=== PATIENT | female | born 1965 | race Caucasian/White ===

== ENCOUNTER 2023-05-02 13:04 | Outpatient (CLI) | payer BC, SELFPAY | END 2023-05-02 13:05 | disposition home or self-care (01) | LOC: NFLDREF 05-04 09:13 | PROVIDERS: PCP Family Medicine; Referring Provider Family Medicine; Visit Provider Nurse Practitioner | DX: R30.0 Dysuria (principal); N30.01 Acute cystitis with hematuria | CPT/HCPCS: 87086 ==

== ENCOUNTER 2023-06-09 17:53 | Outpatient (CLI) | payer BC, SELFPAY | END 2023-06-09 17:54 | disposition home or self-care (01) | LOC: NFLDREF 06-26 03:02 | PROVIDERS: PCP Family Medicine; Referring Provider Family Medicine; Visit Provider Registered Nurse | DX: R07.89 Other chest pain (principal); K21.9 Gastro-esophageal reflux disease without esophagitis | CPT/HCPCS: 84484 ==

== ENCOUNTER 2024-09-21 08:32 | Outpatient (CLI) | payer BC, SELFPAY ==
--- NOTE | 2024-09-21 09:00 | CRLHL7_ITS ---
For Patients: As a result of the Century Cures Act, medical imaging exams and procedure reports are released immediately into your electronic medical record. You may view this report before your referring provider. If you have questions, please contact your health care provider. INDICATION: Microscopic hematuria TECHNIQUE: CT abdomen and pelvis with and without contrast. 100 mL Isovue intravenous contrast COMPARISON: None. FINDINGS: Lower chest: Unremarkable. Liver: Normal in size and attenuation. No suspicious masses. Gallbladder and bile ducts: No stones or inflammation. No biliary dilatation. Pancreas: Unremarkable. No mass or inflammation. Spleen: Normal in size. No masses. Adrenal glands: Normal in size. No nodules. Kidneys: Normal in size. No suspicious masses, stones, or hydronephrosis. GI tract: Unremarkable. Normal in caliber. No sign of mass or inflammation. Normal appendix. Vasculature: Abdominal aorta is normal in caliber. Lymph nodes: No lymphadenopathy. Peritoneum/Abdominal Wall: Unremarkable. No sign of mass or infiltration. No free air or significant free fluid. Pelvis: Unremarkable. No pelvic masses. Air in the urinary Bladder which otherwise is unremarkable. Bones: Unremarkable for age. IMPRESSION: 1. Urinary tract appears unremarkable. Air in the urinary bladder. Correlate for recent instrumentation. Please note that all CT scans at this facility use dose modulation, iterative reconstruction, and/or weight-based dosing when appropriate to reduce radiation dose to as low as reasonably achievable. Dictated by Nuria Gagnon MD @ 09/23/2024 9:58:57 AM (Electronically Signed)
[2024-09-21 09:49] LABS: Creatinine* 0.7 mg/dL (0.5-1.5); Estimated Glomerular Filt Rate 98 ml/min
== END 2024-09-21 08:33 | disposition home or self-care (01) ==
LOC: CT 08:33
PROVIDERS: PCP Family Medicine
DX: R31.29 Other microscopic hematuria (principal)
CPT/HCPCS: 36415; 74178; 82565; Q9967

== ENCOUNTER 2025-03-21 21:00 | Emergency (ER) | payer BC, SELFPAY ==
--- OUTSIDE RECORDS SUMMARY | 2025-02-06 23:00 | XMS_ITS | Encounter Summary ---
Author Organization [place] Address [address] [place] [address]. [place] [address] Care Team Providers Care Grounds Person Name Role Phone Unavailable Primary Care Provider Unavailabl e Encounter Details DateTypeDebaptist health medical centerCare Team (Latest Contact Info)Azukbmpuggp99/28/2025Ancillary Procedure M [facility] External Imaging [address] [place] [phone] Non-Fv Credentialed Provider, Radiology Social History Tobacco UseTypesPacks/DayYears UsedDateSmoking Tobacco: Never Assessed CommentsUnknownSex and Gender InformationValueDate RecordedSex Assigned at Not on fileLegal IppZfyvcx35/04/2012 3:44 AM CSTGender IdentityNot on fileSexual OrientationNot on filedocumented as of this encounter Plan of Treatment DateTypeDebaptist health medical centerCare Team (Latest Contact Info)Qgfflrnjpet14/17/2025 3:00 PM CSTOffice Visit [facility] [address] [place] [address] [place] [address] [place] [address] documented as of this encounter Procedures Procedure NamePriorityDate/TimeAssociated DiagnosisCommentsMR EXTERNAL IMAGNG Amapdyo6502/07/2025 12:00 AM CDT documented in this encounter Results * MR External Imagng (02/07/2025 12:00 AM CDT)Specimen (Source)Anatomical Location / LateralityCollection Method / VolumeCollection TimeReceived Time Narrative Service Account, Ob Jose Albertok - 03/15/2025 9:29 AM SALES CLERK FOOD Images were obtained from an external facility. Click PACS Images hyperlink to view images. ??Textual results have been scanned into the media tab. Authorizing ProviderResult TypeResult StatusRadiology Non-Fv Credentialed ProviderIMG EXTERNAL IMAGING ORDERABLESFinal Result documented in this encounter Visit Diagnoses Not on filedocumented in this encounter
--- OUTSIDE RECORDS SUMMARY | 2025-03-03 | XMS_ITS | Encounter Summary ---
Author Organization [place] Address [address] [place] [address]. [place] [address] Care Team Providers Care Linen Room Supervisor Name Role Phone Unavailable Primary Care Provider Unavailabl e Encounter Details DateTypeDeadvanced care hospital of white countyCare Team (Latest Contact Info)Rqepvnjedeq13/21/2025ncillary Procedure M [facility] External Imaging [address] [place] [phone] Non-Fv Credentialed Provider, Radiology Social History Tobacco UseTypesPacks/DayYears UsedDateSmoking Tobacco: Never Assessed CommentsUnknownSex and Gender InformationValueDate RecordedSex Assigned at Not on fileLegal ZesAowmsl92/04/2012 3:44 AM CSTGender IdentityNot on fileSexual OrientationNot on filedocumented as of this encounter Plan of Treatment DateTypeDeadvanced care hospital of white countyCare Team (Latest Contact Info)Hpjjgdcdmfe61/17/2025 3:00 PM CSTOffice Visit [facility] [address] [place] [phone] [place] [address] [place] [address] documented as of this encounter Procedures Procedure NamePriorityDate/TimeAssociated DiagnosisCommentsXR EXTERNAL IMAGING Odikgqr0903/03/2025 12:00 AM TRENCH DIGGING MACHINE OPERATOR documented in this encounter Results * XR External Imaging (03/03/2025 12:00 AM TRENCH DIGGING MACHINE OPERATOR)Specimen (Source)Anatomical Location / LateralityCollection Method / VolumeCollection TimeReceived Time Narrative Service Account, Ob Stork - 03/15/2025 9:29 AM TRENCH DIGGING MACHINE OPERATOR Images were obtained from an external facility. Click PACS Images hyperlink to view images. ??Textual results have been scanned into the media tab. Authorizing ProviderResult TypeResult StatusRadiology Non-Fv Credentialed ProviderIMG EXTERNAL IMAGING ORDERABLESFinal Result documented in this encounter Visit Diagnoses Not on filedocumented in this encounter
--- OUTSIDE RECORDS SUMMARY | 2025-03-15 13:55 | XMS_ITS | Encounter Summary ---
Author Organization [place] Address [address] [place] [address] Care Team Providers Care Contamination Consultant Name Role Phone No Ref-Primary, Physician Primary Care Provider Reason for Visit * Diagnostic Imaging XR (Routine) - Pending ReviewSpecialtyDiagnoses / ProceduresReferred By ContactReferred To ContactRadiology. Diagnoses Right shoulder pain, unspecified chronicity Procedures XR Shoulder Right 2 [place] [id number] [address], [facility] [address] [place] [address] Phone: tel: fax: Referral IDStatusReasonStart DateExpiration DateVisits RequestedVisits [id number] Encounter Details DateTypeDepartmentCare Team (Latest Contact Info)Qotmagsrvww34/03/2025 1:55 PM CSTAncillary Procedure [facility] Orthopedic Xray [address] [place] [address] [place] [id number] [address], [facility] [address] [place], [place] [phone] Right shoulder pain, unspecified chronicity Social History Tobacco UseTypesPacks/DayYears UsedDateSmoking Tobacco: NeverComments UnknownSex and Gender InformationValueDate RecordedSex Assigned at BirthNot on fileLegal XbuOdkxeu67/04/2012 3:44 AM CSTGender IdentityNot on fileSexual OrientationNot on filedocumented as of this encounter Plan of Treatment DateTypeDepartmentCare Team (Latest Contact Info)Qydomroafnc86/17/2025 3:00 PM CSTOffice Visit [facility] [place] [id number] [facility] [address] [place] [address] George Lopez, [address] [place] [address] documented as of this encounter Procedures Procedure NamePriorityDate/TimeAssociated DiagnosisCommentsXR SHOULDER RIGHT 2 EOGLNTstupeg81/03/2025 2:11 PM TELEVISION HOST Right shoulder pain, unspecified chronicity documented in this encounter Results * XR Shoulder Right 2 Views (03/15/2025 2:11 PM TELEVISION HOST)Anatomical RegionLaterality ModalityShoulder, Chest, ArmRightComputed RadiographySpecimen (Source) Anatomical Location / LateralityCollection Method / VolumeCollection Time Received Time Impressions 03/15/2025 2:30 PM TELEVISION HOST Impression: 1. No acute osseous abnormality. 2. No substantial degenerative change. I have personally reviewed the examination and initial interpretation and I agree with the findings. SUSANA SKAGGS MD Narrative 03/15/2025 2:30 PM TELEVISION HOST 4 views right shoulder radiographs 03/15/2025 2:20 PM History: Right shoulder pain, unspecified chronicity Additional History from EMR: Pain started December 2023 wall doing yard work and throwing heavy objects. Symptoms worsen by overhead movement, laying on the right shoulder, with forward flexion and shoulder abduction. Comparison: Radiograph 06/10/2024, MR 02/07/2025 Findings: AP, Grashey, transscapular Y, axillary ??views of the right shoulder were obtained. No acute osseous abnormality. Glenohumeral and acromioclavicular joints are congruent. Mild degenerative changes of the acromioclavicular joint. No substantial degenerative change of the glenohumeral joint. Soft tissue is unremarkable. The visualized lung is clear. Procedure Note Susana Skaggs MD - 03/15/2025 4 views right shoulder radiographs 03/15/2025 2:20 PM History: Right shoulder pain, unspecified chronicity Additional History from EMR: Pain started December 2023 wall doing yard work and throwing heavy objects. Symptoms worsen by overhead movement, laying on the right shoulder, with forward flexion and shoulder abduction. Comparison: Radiograph 06/10/2024, MR 02/07/2025 Findings: AP, Grashey, transscapular Y, axillary views of the right shoulder were obtained. No acute osseous abnormality. Glenohumeral and acromioclavicular joints are congruent. Mild degenerative changes of the acromioclavicular joint. No substantial degenerative change of the glenohumeral joint. Soft tissue is unremarkable. The visualized lung is clear. Impression: 1. No acute osseous abnormality. 2. No substantial degenerative change. I have personally reviewed the examination and initial interpretation and I agree with the findings. SUSANA SKAGGS MD Authorizing ProviderResult TypeResult StatusAllrenuka [facility] ORDERABLESFinal Result documented in this encounter Visit Diagnoses Diagnosis Right shoulder pain, unspecified chronicity documented in this encounter Care Teams Team MemberRelationshipSpecialtyStart DateEnd Date No Ref-Primary, Physician PCP - Jmerxhh12/3/25documented as of this encounter
--- OUTSIDE RECORDS SUMMARY | 2025-03-15 14:00 | XMS_ITS | Encounter Summary ---
Author Organization [place] Address [address] [place] [id number] Care Team Providers Care Powerhouse Oiler Name Role Phone No Ref-Primary, Physician Primary Care Provider Reason for Referral * Consultation (Routine) - Pending ReviewSpecialtyDiagnoses / ProceduresReferred By ContactReferred To Contact Diagnoses Right shoulder pain, unspecified chronicity An Gonzalez MD [address] [place] [address] Phone: tel: fax: Referral IDStatusReasonStart DateExpiration DateVisits RequestedVisits [id number] Consult Type: Shoulder Type: Non-Surgical Ortho/Sports Med My clinical question is: right shoulder suprascapular nerve block with sports in a 40 minute window with ultrasound guidance Patient Scheduling Instructions: [facility] Hollow Ware Maker team will contact you via phone, text, email or userADgentshart within 2 business days to help you schedule your appointment, or you may contact the Hollow Ware Maker Team at . Comments Please be aware that coverage of these services is subject to the terms and limitations of your health insurance plan. Call member services at your health plan with any benefit or coverage questions. [facility] Hollow Ware Maker team will contact you via phone, text, email or userADgentshart within 2 business days to help you schedule your appointment, or you may contact the Hollow Ware Maker Team at . L MAKER FIREARMS * Rehab Therapy Physical Therapy (Routine: Next available opening) - Pending ReviewSpecialtyDiagnoses / ProceduresReferred By ContactReferred To Contact Diagnoses Right shoulder pain, unspecified chronicity An Gonzalez MD [address] [place] [address] Phone: tel: fax:[phone] Referral IDSJoaquin DateExpiration DateVisits RequestedVisits [id number] Scheduling Instructions Frequency of PT: 1-2 times per week and per therapist's discretion Please schedule with one of the following therapists: Dheeraj: Harsh Kilpatrick [place]: Sandeep Prince: Arianna Kirk [place] / [place]: Walter Helton [place]: Yandel Corcoran [place]: Arabella Gonzalez [facility]: Tejas Roberts, Jason Petty, Luke Banerjee [place] / [place]: Rich Pineda, Guanakito Knox QuestionAnswer Course of Action: Evaluation and Treatment Specialty Services: Per Associated Diagnosis Patient Scheduling Instructions: [facility] will call you to coordinate your care as prescribed by your provider. If you don't hear from a arborist representative within 2 business days, please call . Comments Please be aware that coverage of these services is subject to the terms and limitations of your health insurance plan. Call member services at your health plan with any benefit or coverage questions. [facility] will call you to coordinate your care as prescribed by your provider. If you don't hear from a arborist representative within 2 business days, please call . L MAKER FIREARMS Reason for Visit * ReasonCommentsConsultRight Shoulder Pain Encounter Details DateTypeDepartmentCare Team (Latest Contact Info)Wszhhoanfme03/03/2025 2:00 PM CSTOffice Visit [facility] [address] 4th [place] [address] [place] [address] [place] , [address] [address] Right shoulder pain, unspecified chronicity (Primary Dx); Adhesive capsulitis of right shoulder Social History Tobacco UseTypesPacks/DayYears UsedDateSmoking Tobacco: Never Tobacco Cessation:Counseling Given: Not Answered CommentsUnknownSex and Gender InformationValueDate RecordedSex Assigned at BirthNot on fileLegal WimPwydmj83/04/2012 3:44 AM CSTGender IdentityNot on fileSexual OrientationNot on filedocumented as of this encounter Last Filed Vital Signs Vital SignReadingTime TakenCommentsBlood Pressure--Pulse--Temperature-- Respiratory Rate--Oxygen Saturation--Inhaled Oxygen Concentration--Sgnnlt16.2 kg (115 lb)03/15/2025 2:15 PM JGKObgyqj818.6 cm (5' 4)03/15/2025 2:15 PM CSTBody Mass Index19.7403/15/2025 2:15 PM CSTdocumented in this encounter Progress Notes * An Gonzalez MD - 03/15/2025 2:00 PM CST CHIEF COMPLAINT: Right shoulder pain DIAGNOSIS: Right shoulder adhesive capsulitis 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 Symptoms started in December of 2023. There was a precipitating event when the patient was throwing logs at her cabin while doing yard work. The pain is located to the anterior, superior and posterior shoulder. Worst pain is rated a 10 of 10, and current pain is rated at 4 of 10. Symptoms are worsened by overhead movements, laying on her shoulder, forward flexion, andshoulder abduction. Symptoms are improved with rest. Patient has tried RICE method, OTC medication,and physical therapy. PT with Dario Lopez 06/2024-01/2025 with mild relief. Associated symptoms include pain. Patient has without pain radiating down the arm, without numbness. Notably, the patient has had no other shoulder history. No other concerns or complaints at this time. SANE score R - 60 L - 100 PAST MEDICAL HISTORY: No past medical history on file. PAST SURGICAL HISTORY: No past surgical history on file. CURRENT MEDICATIONS: No current outpatient medications on file. ALLERGIES: Allergies[1] FAMILY HISTORY: No pertinent family history, reviewed in EMR. SOCIAL HISTORY: Social History Socioeconomic History Marital status: Spouse name: Not on file Number of children: Not on file Years of education: Not on file Highest education level: Not on file Occupational History Not on file Tobacco Use Smoking status: Not on file Smokeless tobacco: Not on file Substance and Sexual Activity Alcohol use: Not on file Drug use: Not on file Sexual activity: Not on file Other Topics Concern Not on file Social History Narrative Not on file Social Drivers of Health Financial Resource Strain: Low Risk (06/09/2024) Received from [facility] Financial Resource Strain Difficulty of Paying Living Expenses: 3 Difficulty of Paying Living Expenses: Not on file Food Insecurity: No Food Insecurity (06/09/2024) Received from [facility] Food Insecurity Do you worry your food will run out before you are able to buy more?: 1 Transportation Needs: No Transportation Needs (06/09/2024) Re[facility] from [facility] Transportation Needs Does lack of transportation keep you from medical appointments?: 1 Does lack of transportation keep you from work, meetings or getting things that you need?: 1 Physical Activity: Not on file Stress: Not on file Social Connections: Socially Integrated (06/09/2024) Received from [facility] Social Connections Do you often feel lonely or isolated from those around you?: 0 Interpersonal Safety: Not on file Housing Stability: Low Risk (06/09/2024) Received from [facility] Housing Stability What is your housing situation today?: 1 REVIEW OF SYSTEMS: Positive for that noted in past medical history and history of present illness and otherwise reviewed in EMR PHYSICAL EXAM: Patient is Data Unavailable and weighs 0 lbs 0 oz There were no vitals taken for this visit. There is no height or weight on file to calculate BMI. Constitutional: Well-developed, well-nourished, healthy appearing female. Skin: Warm, dry HEENT: Normal Cardiac: Well perfused extremities, strong 2+ peripheral pulses. No edema. Pulmonary: Breathing room air Musculoskeletal: Right Shoulder: AROM right shoulder: 120/140/50/L1 AROM left shoulder: 160/160/60/T8 PROM right shoulder: 120/140/50/L1 5/5 supraspinatus, 5/5 infraspinatus, 5/5 subscapularis no AC joint pain, negative cross body adduction negative Neer and Freitas impingement signs negative belly-press/lift-off negative Speed's test Neurovascular exam and cervical spine exam are normal. X-RAYS: AP, lateral, zanca, and axillary radiographs of the right shoulder were ordered and reviewed by me personally showing well-maintained glenohumeral joint I personally reviewed the prior MRI which shows evidence of ADVANCED IMAGING: I personally reviewed the prior MRI which shows rotator cuff partial-thickness tearing without full-thickness tear, no atrophy, minimal edema around the biceps. IMPRESSION: 59 year oldzfu-bpuo-bzx left hand dominant female, with right shoulder adhesive capsulitis. PLAN: I discussed with the patient the etiology of their condition. We discussed at length the options asnoted above. I went through the MRI results with the patient today. We discussed that the patient does have mild adhesive capsulitis and has been over 1 years duration. Patient is in participating physical therapy, activity modification, zsyf-ezr-ekqyiik analgesics. We discussed treatment options including conservative treatment. Conservatively we discussed trial of a suprascapular nerve block and continued physical therapy. Patient is interested since and a referral was placed for suprascapular nerve block today. At the conclusion of the office visit, Meron verbally acknowledged that I answered all of her questions satisfactorily. An Gonzalez MD Orthopedic Surgery Sports Medicine and Shoulder Surgery [1] Allergies Allergen Reactions Doxycycline Causes throat issues Lisinopril Swelling L MAKER FIREARMS documented in this encounter Plan of Treatment DateTypeDepartmentCare Team (Latest Contact Info)Srwywbtvrzz39/17/2025 3:00 PM CSTOffice Visit [facility] [place] [address] [facility] 4th [place] [address] [place] [address] [place], [place] [phone] NameTypePriorityAssociated DiagnosesOrder SchedulePhysical Therapy Hollow Ware Maker ReferralReferralRoutine: Next available opening Right shoulder pain, unspecified chronicity Expected: 03/15/2025 (Approximate), Expires: 03/15/2026Orthopedic Hollow Ware Maker ReferralReferralRoutine Right shoulder pain, unspecified chronicity Expected: 03/15/2025 (Approximate), Expires: 03/15/2026documented as of this encounter Visit Diagnoses Diagnosis Right shoulder pain, unspecified chronicity- Primary Adhesive capsulitis of right shoulder Adhesive capsulitis of shoulder documented in this encounter Care Teams Team MemberRelationshipSpecialtyStart DateEnd Date No Ref-Primary, Physician PCP - Wjcbbna09/3/25documented as of this encounter
--- OUTSIDE RECORDS SUMMARY | 2025-03-21 21:03 | XMS_ITS | Encounter Summary ---
Author Organization [place] Address [facility] [place] [address] Care Team Providers Care Chrome Tanning Drum Operator Name Role Phone No Ref-Primary, Physician Primary Care Provider Encounter Details DateTypeDepartmentCare Team (Latest Contact Info)Gaszoblicpn37/03/2025Travel Social History Tobacco UseTypesPacks/DayYears UsedDateSmoking Tobacco: NeverComments UnknownSex and Gender InformationValueDate RecordedSex Assigned at BirthNot on fileLegal HuoEglqzz26/04/2012 3:44 AM CSTGender IdentityNot on fileSexual OrientationNot on filedocumented as of this encounter Plan of Treatment DateTypeDepartmentCare Team (Latest Contact Info)Mfsethrqvcy04/17/2025 3:00 PM CSTOffice Visit [facility] [address] [place] [phone] [place] [address] [place], [place] [address] documented as of this encounter Visit Diagnoses Not on filedocumented in this encounter Care Teams Team MemberRelationshipSpecialtyStart DateEnd Date No Ref-Primary, Physician PCP - Nokedtu02/3/25documented as of this encounter
--- OUTSIDE RECORDS SUMMARY | 2025-03-21 21:03 | XMS_ITS | Encounter Summary ---
Author Organization [facility] Address [address] [place] [address] Care Team Providers Care Storm Sash Maker Name Role Phone No Ref-Primary, Physician Primary Care Provider Reason for Referral * Diagnostic Imaging XR (Routine) - Pending ReviewSpecialtyDiagnoses / ProceduresReferred By ContactReferred To ContactRadiology. Diagnoses Right shoulder pain, unspecified chronicity Procedures XR Shoulder Right 2 [place] [address] [place] , [facility] [address] [place] [address] Phone: tel: fax: Referral IDStatusReasonStart DateExpiration DateVisits RequestedVisits [id number] [id number] FEED DEPARTMENT SUPERVISOR Encounter Details DateTypeDepartmentCare Team (Latest Contact Info)Zpdbpppflkn04/03/2025[facility] [address] [place] [address] [place] [address] [place] , [facility] [address] [place], [place] [phone] Right shoulder pain, unspecified chronicity (Primary Dx) Social History Tobacco UseTypesPacks/DayYears UsedDateSmoking Tobacco: NeverComments UnknownSex and Gender InformationValueDate RecordedSex Assigned at BirthNot on fileLegal FzzDkvewb61/04/2012 3:44 AM CSTGender IdentityNot on fileSexual OrientationNot on filedocumented as of this encounter Plan of Treatment DateTypeDepartmentCare Team (Latest Contact Info)Zvprlhukwaj55/17/2025 3:00 PM CSTOffice Visit [facility] [place] [id number] [facility] [address] [place] [address] [place] [address] [place] [address] documented as of this encounter Results * XR Shoulder Right 2 Views (03/15/2025 2:11 PM CELL FEED DEPARTMENT SUPERVISOR)Anatomical RegionLaterality ModalityShoulder, Chest, ArmRightComputed RadiographySpecimen (Source) Anatomical Location / LateralityCollection Method / VolumeCollection Time Received Time Impressions 03/15/2025 2:30 PM CELL FEED DEPARTMENT SUPERVISOR Impression: 1. No acute osseous abnormality. 2. No substantial degenerative change. I have personally reviewed the examination and initial interpretation and I agree with the findings. SUSANA SKAGGS MD Narrative 03/15/2025 2:30 PM CELL FEED DEPARTMENT SUPERVISOR 4 views right shoulder radiographs 03/15/2025 2:20 [...] Diagnosis Right shoulder pain, unspecified chronicity- Primary Right shoulder pain, unspecified chronicity documented in this encounter Care Teams Team MemberRelationshipSpecialtyStart DateEnd Date No Ref-Primary, Physician PCP - Jugjlyl29/3/25documented as of this encounter
--- OUTSIDE RECORDS SUMMARY | 2025-03-21 21:03 | XMS_ITS | Clinical Summary ---
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 Name Role Phone No Ref-Primary, Physician Primary Care Provider Allergies Active AllergyReactionsCriticalityNoted EfcaRbzhygfnXfznzunqbpc57/03/2025 Causes throat issues JrywkdggydIycuamoi66/03/2025 Medications No known medications Encounters DateTypeDepartmentCare InpmPgqgntpcmyk20/03/2025 2:00 PM CSTOffice Visit [facility] [address] [phone] An Gonzalez MD Right shoulder pain, unspecified chronicity (Primary Dx); Adhesive capsulitis of right /03/2025 1:55 PM CSTAncillary Procedure [facility] Orth[facility] Xray [address] [phone] An Gonzalez MD Right shoulder pain, unspecified fnjuxzyvti34/03/2265Idrqnq69/03/2025Orders Only [facility] [address] [phone] An Gonzalez MD Right shoulder pain, unspecified chronicity (Primary Dx)03/15/2025PRE VISIT [facility] Orthopedic [address] [phone] An Gonzalez MD *-*INCOMING RECORDS*-*5Ancillary Procedure [facility] External Imaging [address] [place] [phone] Non-Fv Credentialed Provider, Radiology 5Ancillary Procedure [facility] [address] [place] [address] Non-Fv Credentialed Provider, Radiology from Last 3 Months Social History Tobacco UseTypesPacks/DayYears UsedDateSmoking Tobacco: Never Tobacco Cessation:Counseling Given: Not Answered CommentsUnknownSex and Gender InformationValueDate RecordedSex Assigned at BirthNot on fileLegal UrmUfdnob93/04/2012 3:44 AM CSTGender IdentityNot on fileSexual OrientationNot on file Last Filed Vital Signs Vital SignReadingTime TakenCommentsBlood Pressure--Pulse--Temperature-- Respiratory Rate--Oxygen Saturation--Inhaled Oxygen Concentration--Myzxod68.2 kg (115 lb)03/15/2025 2:15 PM AHHRwatdb565.6 cm (5' 4)03/15/2025 2:15 PM CSTBody Mass Index19.7403/15/2025 2:15 PM 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 Plan of Treatment DateTypeDepartmentCare Team (Latest Contact Info)Pfmtnrvwaui61/17/2025 3:00 PM CSTOffice Visit [facility] [address] [place] [address] [place] [address] [place], [place] [phone] Health MaintenanceDue DateLast DoneCommentsADVANCE CARE RMYUXGEK63/30/1964ANNUAL REVIEW OF HM UQSXPY35 1963CT VDEHYYJNSISF39/30/1964DIABETES SCREENING 1963FIT1963FLEX SIG1963 5328DKEYCCRWENK48/30/1974HIV SCREENING 07/10/19782411VMIIY26/30/2004PNEUMOCOCCAL VACCINE 50+ YEARS (1 of 1 - PCV)07/10/2013 ZOSTER VACCINE (1 of 2)07/10/2013PAP106/05/5789171PHQ-2 (once per calendar year)5COLORECTAL CANCER HNWEDIAQO17/29/2025sDNA (Cologuard)05/11/2024 2DTAP/TDAP/TD VACCINE (2 - Td or Tdap)508/, 01/15/2004 COVID-19 VACCINE ( season)502/, 01/04/2024, 01/17/2023, Additional history existsINFLUENZA VACCINE (#1)510/07/2020, 12/06/2019, 02/06/2016YEARLY PREVENTIVE VISIT602/, 12/02/2022, 04/04/2021, Additional history existsMAMMO PTJVORCIH74, 01/17/2025, 12/23/2023, Additional history existsRSV VACCINE (1 - 1-dose 75+ series)07/10/2038HEPATITIS C AJIUKGCTLMfhzlsozb30/23/2021HPV VACCINE (No Doses Required)CompletedMENINGITIS VACCINEAged OutNo longer eligible based on patient's age to complete this topic Procedures Procedure NamePriorityDate/TimeAssociated DiagnosisCommentsXR SHOULDER RIGHT 2 JTVGJVdxmzlk40/03/2025 2:11 PM 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 Right shoulder pain, unspecified chronicity XR EXTERNAL FQJPYFUYpavjqp98/21/2025 12:00 AM 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 MR EXTERNAL NOQFVUUtnickn53/28/2025 12:00 AM CDT from Last 3 Months Results * XR Shoulder Right 2 Views (03/15/2025 2:11 PM 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)Anatomical RegionLaterality ModalityShoulder, Chest, ArmRightComputed RadiographySpecimen (Source) Anatomical Location / LateralityCollection Method / VolumeCollection Time Received Time Impressions 03/15/2025 2:30 PM 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 Impression: 1. No acute osseous abnormality. 2. No substantial degenerative change. I have personally reviewed the examination and initial interpretation and I agree with the findings. SUSANA SKAGGS MD Narrative 03/15/2025 2:30 PM 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 4 views right shoulder radiographs 03/15/2025 2:20 [...] TypeResult StatusAllrenuka [facility] DIAGNOSTIC IMAGING ORDERABLESFinal Result * XR External Imaging (03/03/2025 12:00 AM 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)Specimen (Source)Anatomical Location / LateralityCollection Method / VolumeCollection TimeReceived Time Narrative Service Account, [facility] - 03/15/2025 9:29 AM 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 Images were obtained from an external facility. Click PACS Images hyperlink to view images. ??Textual results have been scanned into the media tab. Authorizing ProviderResult TypeResult StatusRadiology Non-Fv Credentialed ProviderIMG EXTERNAL IMAGING ORDERABLESFinal Result * MR External Imagng (02/07/2025 12:00 AM CDT)Specimen (Source)Anatomical Location / LateralityCollection Method / VolumeCollection TimeReceived Time Narrative Service Account, Ob Jose Albertok - 03/15/2025 9:29 AM 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 Images were obtained from an external facility. Click PACS Images hyperlink to view images. ??Textual results have been scanned into the media tab. Authorizing ProviderResult TypeResult StatusRadiology Non-Fv Credentialed ProviderIMG EXTERNAL IMAGING ORDERABLESFinal Result from Last 3 Months Insurance Care Teams Team MemberRelationshipSpecialtyStart DateEnd Date No Ref-Primary, Physician PCP - Dmakwkx47/3/25
--- OUTSIDE RECORDS SUMMARY | 2025-03-21 21:03 | XMS_ITS | Clinical Summary ---
Author Organization [facility] Address [address] [place] [address] Care Team Providers Care Inpatient Nursing Aide Name Role Phone Bhavna Baig MD Primary Care Provide r Allergies Active AllergyReactionsCriticalityNoted DateCommentsDoxycyclineNausea And Eopalawb63/01/6685BepnwfrmkgPlvnraluoy47/25/2015 Medications MedicationSigDispense QuantityRefillsLast FilledStart DateEnd DateStatus FISH OIL 1,000 MG CAP Indications:Screening for diabetes oxrpdcha9446-7465 mg EPA + DHA daily0 11/29/2007ctive betamethasone,augmented dipropionate 0.05% (DIPROLENE LOTION 0.05%) lotion Apply topically to affected area(s) two times daily.4Active dilTIAZem SR (CARDIZEM SR) 60 mg extended release 12 hr capsule Indications:HTN (hypertension), benign,Paroxysmal SVT (supraventricular tachycardia) (HC)Take 60 mg once daily 100 Capsule 5Active estradioL (ESTRACE) 0.01% (0.1 mg/g) vaginal cream Indications:Atrophic vaginitisInsert 1 g into the vagina every Thursday and Thursday. 42.5 g 5Active Active Problems ProblemNoted DateDiagnosed DatePSVT (paroxysmal supraventricular tachycardia) 06/12/2023ap smear for cervical cancer vfptiwiaq60/22/2021 Overview (05/08/2021): 03/2021 NIL/HPV negative. Plan: Pap/HPV due 03/2026 Cyst of right ovary03/13/2016Family history of diabetes /18/2016SVT (supraventricular tachycardia)05/05/2011Syncope and bqefpebp71/15/2011HTN (hypertension), fiftac1901/15/2010 Resolved Problems ProblemNoted DateDiagnosed DateResolved DateParoxysmal VT Encounters DateTypeDepartmentCare FiqlOrqhgqgmsuo34/21/2025 12:45 PM CSTOffice Visit [facility] [address] [place] [address] Spencer Lao MD Shoulder Pain/problem (Right shoulder)03/03/2025 12:30 PM CSTAncillary Procedure [address] [place] [address] 03/03/20255421Mfwizr56/20/2025Telephone [facility] [address] [phone] Spencer Lao MD Shoulder Pain/problem (Right )02/14/2025Orders Only [address] [facility] [place] [address] Bharti [place], DO <No scans attached>02/07/2025 2:00 PM CDTAncillary Procedure [facility] [address] [place] [address] 02/06/20258179Bcszel58/09/2025Orders Only [facility] Scanner 1 scan: (1-Ord) EPIPHANY DERMATOLOGY, LEFT MID UPPER BACK SKIN, 01/19/2025 01/19/2025Orders Only [facility] Scanner 1 scan: (1-Ord) EPIPHANY DERMATOLOGY, BIOPSY; SHAVE METHOD ? LT MID- UPPER BACK , /11/2024 2:15 PM CDTOffice Visit [facility] [address] [place] [address] VinnieBharti, DO Shoulder Pain/problem (right shoulder- has been doing PT for about 6 months, some improvement but not back to normal/)01/17/2025 9:40 AM CDTAncillary Procedure [facility] [address] [place] [address] 01/17/2025Travelfrom Last 3 Months Immunizations ImmunizationAdministration DatesNext DueCOVID-19 VACCINE SPIKEVAX (MODERNA 50MCG/0.5ML) 12YO+ PFS06/10/2024Influenza, SUO749/07/2020,02/06/2016MMR 06/30/2024Td (Age >=7 Years)01/12/2004Tdap12/05/2014 Family History Medical HistoryRelationNameCommentsThyroid DiseaseBrother 3TimDiabetesBrother 4 Patrickage 20'sDiabetesBrother 5Dennisage 20'sGenitourinary DiseaseFather OsteoarthritisMotherCarolThyroid DiseaseMotherCarolCancer-colonPaternal GrandfatherRussellunsure of age of onsetCancer-breastNo Family History Cancer-ovarianNo Family HistoryRelationNameStatusCommentsBrother 1AliveBrother 2 AliveBrother 3TimAliveBrother 4PatrickBrother 5DennisDaughter 1SaraAliveDaughter 2KarynAliveFatherAliveMotherCarolAlivePaternal GrandfatherRussellSonCarlAlive Social History Tobacco UseTypesPacks/DayYears UsedDateSmoking Tobacco: NeverSmokeless Tobacco: Never Tobacco Cessation:Counseling Given: No Alcohol UseStandard Drinks/WeekCommentsYes0 (1 standard drink = 0.6 oz pure alcohol)very rarelyPHQ-2AnswerDate RecordedPHQ-2 TOTAL OBGTA437Social ConnectionsAnswerDate RecordedDo you often feel lonely or isolated from those around you?lcohol UseAnswerDate RecordedHow often do you have a drink containing alcohol?How many drinks containing alcohol do you have on a typical day when you are drinking?Frequency of Binge DrinkingNot on file10/08/2025Financial Resource StrainAnswerDate Recorded Difficulty of Paying Living Innnhzsw323/27/2025Difficulty of Paying Living ExpensesNot on file06/09/2024Food InsecurityAnswerDate RecordedDo you worry your food will run out before you are able to buy more?Transportation NeedsAnswerDate RecordedDoes lack of transportation keep you from medical appointments?Does lack of transportation keep you from work, meetings or getting things that you need?Housing StabilityAnswerDate Recorded What is your housing situation today?UtilitiesAnswerDate RecordedDo you have trouble paying for utilities (for example, heat, electricity, water, phone)?CommentsNoSex and Gender InformationValueDate Recorded Sex Assigned at BirthNot on fileLegal NzgClnpwb52/14/2013 6:47 AM CSTGender IdentityNot on fileSexual OrientationNot on file Obstetrics History GravidaParaTermPretermABIABSABEctopicMultipleLivingLive Ujlizt167129TsgaNijxfci GATotal LaborLabor/2nd/2nsHixudqNkkCvnmPnkuUFKSvpG2Y9ErvpKsvuNbthQopaXvofIYW Last Filed Vital Signs Vital SignReadingTime TakenCommentsBlood Xsimyexp035/7810 2:14 PM CDT Hylrx063801/18/2025 2:14 PM SEZKmruxdfqznt05.5 ??C (97.7 ??F)08/03/2024 1:58 PM CDTRespiratory Puvt493311/29/2015 1:05 PM CDTOxygen Nvvrspwizb96%01/18/2025 2:14 PM CDTInhaled Oxygen Concentration--Alexte45.3 kg (122 lb)01/18/2025 2:14 PM CDT Qutdrg887.8 cm (5' 4.5)06/10/2024 8:09 AM CSTBody Mass Index20.62006/10/2024 8:09 AM STRAP CUTTING MACHINE OPERATOR Plan of Treatment Health MaintenanceDue DateLast DoneCommentsHIV for age 15- Pneumococcal series for age 50+ (1 of 2 - PCV)07/10/1982Zoster (shingles) series for age 50+ (1 of 2)07/10/2013Fecal testing sDNA-FIT (Cologuard) for age 45-75 501/, 04/19/2021Tetanus wkfjgya61/, 01/12/2004 COVID-19 vaccine series ( season)5006/10/2024, 01/04/2024, 01/17/2023, Additional history existsInfluenza Vaccine (#1)/07/2020, 02/06/2016BMI (ht and wt on same day) for age 18+, 12/02/2022, 07/05/2021, Additional history existsDepression screening for age 12+, 12/02/2022, 08/19/2021, Additional history exists Mammogram for age 45-75/10/2024, 12/23/2023, 11/12/2022, Additional history existsPap test for age 21-65, 04/04/2021, 07/23/2017, Additional history existsLipids for age 45-750, 12/02/2022, 04/04/2021, Additional history existsRSV vaccine for adults or (1 - 1-dose 75+ series)07/10/2038Hepatitis C screening for age 18-79 Dnruiyhld59/23/2021Hepatitis B series for 19+Aged OutNo longer eligible based on patient's age to complete this topic Procedures Procedure NamePriorityDate/TimeAssociated DiagnosisCommentsXR SHOULDER 1 VIEW VREJPQskyulz97/21/2025 12:22 PM STRAP CUTTING MACHINE OPERATOR Right shoulder pain, unspecified chronicity MR SHOULDER RIGHT QKYyjdscc99/28/2025 2:35 PM CDT Chronic pain in right shoulder SCAN-PATHOLOGY YAPFRX5001/19/2025 12:00 AM CDT SCAN-OPERATIVE/PROCEDURE WPETZK1701/19/2025 12:00 AM CDT XR MAMMO JESUS BILAT SIBJIYLgzijom27/07/2025 9:52 AM CDT Visit for screening mammogram LIPID PANEL W REFLEX MEASURED YXMNgjjyly81/28/2025 8:54 AM STRAP CUTTING MACHINE OPERATOR Lipid screening SCAN-FECAL TEST DNA (COLOGUARD)05/11/2021 12:00 AM CSTANTI AQPWofrwse97/23/2021 5:15 PM STRAP CUTTING MACHINE OPERATOR Encounter for hepatitis C screening test for low risk patient ELECTRONIC PUBLISHER THIN PREP PAP SCREEN RHFFNSGfxrknx95/23/2021 4:50 PM STRAP CUTTING MACHINE OPERATOR Encounter for gynecological examination without abnormal finding from Last 3 Months or Most Recently Relevant to Health Maintenance Results * XR SHOULDER 1 VIEW RIGHT (03/03/2025 12:22 PM STRAP CUTTING MACHINE OPERATOR)Anatomical RegionLaterality ModalitySHOULDERS, SHOULDER RComputed RadiographySpecimen (Source)Anatomical Location / LateralityCollection Method / VolumeCollection TimeReceived Time 03/03/2025 2:30 PM STRAP CUTTING MACHINE OPERATOR Narrative 03/03/2025 2:30 PM STRAP CUTTING MACHINE OPERATOR For Patients: As a result of the Cures Act, medical imaging exams and procedure reports are released immediately into your electronic medical record. You may view this report before your referring provider. If you have questions, please contact your health care provider. INDICATION: Right shoulder pain TECHNIQUE: Shoulder radiograph 1 axillary view right COMPARISON: 06/10/2024 FINDINGS: Bone: No acute fractures or aggressive bone lesions are identified. Joint: The glenohumeral joint is unremarkable. The acromioclavicular joint is unremarkable. Soft tissue: Unremarkable. The visualized hemithorax is unremarkable in appearance. No radiopaque foreign bodies are seen. IMPRESSIONS: 1. No acute osseous injuries are noted. 2. Complete radiographic assessment will require at least an additional orthogonal view. Dictated by Triston Neal MD @ 03/03/2025 2:29:57 PM Dictated by: Triston Neal MD @ 03/03/2025 14:30:00 (Electronically Signed) Procedure Note Triston Neal MD - 03/03/2025 For Patients: As a result of the Cures Act, medical imagingexams and procedure reports are released immediately into your electronicmedical record. You may view this report before your referring provider.If you have questions, please contact your health care provider. INDICATION: Right shoulder pain TECHNIQUE: Shoulder radiograph 1 axillary view right COMPARISON: 06/10/2024 FINDINGS: Bone: No acute fractures or aggressive bone lesions are identified. Joint: The glenohumeral joint is unremarkable. The acromioclavicular jointis unremarkable. Soft tissue: Unremarkable. The visualized hemithorax is unremarkable in appearance. No radiopaque foreign bodies are seen. IMPRESSIONS: 1. No acute osseous injuries are noted. 2. Complete radiographic assessment will require at least an additional orthogonal view. Dictated by Triston Neal MD @ 03/03/2025 2:29:57 PM Dictated by: Triston Neal MD @ 03/03/2025 14:30:00 (Electronically Signed) Authorizing ProviderResult TypeResult StatusThomas Joseph Lao MDGENERAL IMAGING Final Result * MR SHOULDER RIGHT WO (02/07/2025 2:35 PM CDT)Anatomical RegionLaterality ModalitySHOULDER RMagnetic ResonanceSpecimen (Source)Anatomical Location / LateralityCollection Method / VolumeCollection TimeReceived Time02/08/2025 9:53 AM CDT Impressions 02/08/2025 9:53 AM CDT 1. Subtle mild glenohumeral joint capsular edema suggesting mild capsulitis. 2. Mild supraspinatus and subscapularis tendinosis. No significant rotator cuff tendon tear. 3. Mild subacromial-subdeltoid bursal edema. Dictated by Ton Arriaga MD @ 02/08/2025 9:53:15 AM (Electronically Signed) Narrative 02/08/2025 9:53 AM CDT For Patients: As a result of the Cures Act, medical imaging exams and procedure reports are released immediately into your electronic medical record. You may view this report before your referring provider. If you have questions, please contact your health care provider. CLINICAL INDICATION: Chronic right shoulder pain. Limited range of motion. COMPARISON IMAGING STUDIES: Radiographs from 06/10/2024. TECHNICAL: Non-contrast MRI of the right shoulder. Axial, sagittal oblique and coronal oblique T1, PD, PD FS, T2 and T2 FS images. ??1.5 Lizeth MR scanner. FINDINGS: GLENOHUMERAL JOINT: Effusion/Joint Space: No effusion. ??No joint bodies. Humeral Head Articular Cartilage: Maintained. Glenoid Articular Cartilage: Maintained. Alignment: Maintained. Capsule: There is subtle mild edema associated with the axillary pouch on coronal oblique PD fat-sat image number 11 of series 6 and within the rotator interval on sagittal oblique T2 fat-sat image number 7 of series 9. OSSEOUS STRUCTURES: No fracture or marrow replacement process. CORACOACROMIAL ARCH: Acromial Morphology: Type 1 acromial morphology. ?? There is anterolateral downward sloping of the acromion. No os acromiale. ??No significant subacromial spur. ??Lateral acromial thickness is 7 mm. Acromiohumeral Interval: At its narrowest, the interval measures 6 mm. Coracohumeral Interval: At its narrowest, the coracohumeral interval measures 10 mm. ??Coracoid index is 22 mm. ACROMIOCLAVICULAR JOINT REGION: AC joint intact. Coracoclavicular ligament intact. BURSAE: Mild subacromial-subdeltoid bursal edema without bursal fluid collection. ROTATOR CUFF TENDONS AND MUSCLES AND DELTOID: Supraspinatus and Infraspinatus: Mild distal supraspinatus tendinosis. No significant distal tendontear or muscle atrophy. Distal infraspinatus tendon is intact. No muscle atrophy. Teres Minor: No tendinosis, tendon tearing, muscle atrophy or muscle edema. Subscapularis: Distal subscapularis tendinosis superiorly. No high-grade tendon tear or muscle atrophy. Deltoid: No muscle atrophy or edema. BICEPS TENDON, LONG HEAD: The long head of the biceps tendon is intact. ??No subluxation or dislocation of tendon from bicipital groove. GLENOID LABRUM: Intact. OTHER FINDINGS: There is no abnormality within the suprascapular or spinoglenoid notches nor within the quadrilateral space. ??No axillary adenopathy or mass. Procedure Note Ton Arriaga MD - 02/08/2025 For Patients: As a result of the Century Cures Act, medical imagingexams and procedure reports are released immediately into your electronicmedical record. You may view this report before your referring provider.If you have questions, please contact your health care provider. CLINICAL INDICATION: Chronic right shoulder pain. Limited range of motion. COMPARISON IMAGING STUDIES: Radiographs from 06/10/2024. TECHNICAL: Non-contrast MRI of the right shoulder. Axial, sagittal oblique andcoronal oblique T1, PD, PD FS, T2 and T2 FS images. 1.5 [facility]. FINDINGS: GLENOHUMERAL JOINT: Effusion/Joint Space: No effusion. No joint bodies. Humeral Head Articular Cartilage: Maintained. Glenoid Articular Cartilage: Maintained. Alignment: Maintained. Capsule: There is subtle mild edema associated with the axillary pouch oncoronal oblique PD fat-sat image number 11 of series 6 and within therotator interval on sagittal oblique T2 fat-sat image number 7 of series9. OSSEOUS STRUCTURES: No fracture or marrow replacement process. CORACOACROMIAL ARCH: Acromial Morphology: Type 1 acromial morphology. There is anterolateraldownward sloping of the acromion. No os acromiale. No significantsubacromial spur. Lateral acromial thickness is 7 mm. Acromiohumeral Interval: At its narrowest, the interval measures 6 mm. Coracohumeral Interval: At its narrowest, the coracohumeral intervalmeasures 10 mm. Coracoid index is 22 mm. ACROMIOCLAVICULAR JOINT REGION: AC joint intact. Coracoclavicular ligament intact. BURSAE: Mild subacromial-subdeltoid bursal edema without bursal fluidcollection. ROTATOR CUFF TENDONS AND MUSCLES AND DELTOID: Supraspinatus and Infraspinatus: Mild distal supraspinatus tendinosis. No significant distal tendon tear or muscle atrophy. Distal infraspinatustendon is intact. No muscle atrophy. Teres Minor: No tendinosis, tendon tearing, muscle atrophy or muscleedema. Subscapularis: Distal subscapularis tendinosis superiorly. No high-gradetendon tear or muscle atrophy. Deltoid: No muscle atrophy or edema. BICEPS TENDON, LONG HEAD: The long head of the biceps tendon is intact. No subluxation ordislocation of tendon from bicipital groove. GLENOID LABRUM: Intact. OTHER FINDINGS: There is no abnormality within the suprascapular or spinoglenoid notchesnor within the quadrilateral space. No axillary adenopathy or mass. IMPRESSION: 1. Subtle mild glenohumeral joint capsular edema suggesting mildcapsulitis. 2. Mild supraspinatus and subscapularis tendinosis. No significant rotatorcuff tendon tear. 3. Mild subacromial-subdeltoid bursal edema. Dictated by Ton Arriaga MD @ 02/08/2025 9:53:15 AM (Electronically Signed) Authorizing ProviderResult TypeResult StatusTamara Savanah Detert DOMRFinal Result * SCAN-OPERATIVE/PROCEDURE REPORT (01/19/2025 12:00 AM CDT) Narrative Authorizing ProviderResult TypeResult StatusScannerOTHERFinal Result * SCAN-PATHOLOGY REPORT (01/19/2025 12:00 AM CDT) Narrative Authorizing ProviderResult TypeResult StatusScannerOTHERFinal Result * XR MAMMO JESUS BILAT SCREEN (01/17/2025 9:52 AM CDT)Anatomical RegionLaterality ModalityBREASTS, Breast Left, Breast RightBilateralMammographySpecimen (Source)Anatomical Location / LateralityCollection Method / VolumeCollection TimeReceived Time Impressions 01/17/2025 3:52 PM CDT There is no radiographic evidence for malignancy. Recommend annual mammograms. MAMMOGRAM ASSESSMENT: ??ACR 1 Negative PATIENTS: You will also receive a letter with your examination results in an easy to read format. ??If you have questions about your results, please contact your referring provider. Narrative 01/17/2025 3:52 PM CDT For Patients: As a result of the Century Cures Act, medical imaging exams and procedure reports are released immediately into your electronic medical record. You may view this report before your referring provider. If you have questions, please contact your health care provider. XR MAMMO JESUS BILAT SCREEN [[id number]] CLINICAL HISTORY: ??This is an asymptomatic 59 y.o. patient. INDICATION FOR EXAM: Mammogram Screening. TECHNIQUE: CC and MLO views were obtained. ??This study was evaluated with the assistance of Computer-Aided Detection. Breast Tomosynthesis was used in interpretation. COMPARISON FILM: Yes 12/23/23 [facility] 11/12/22 [facility] FINDINGS: ??The breasts are extremely dense, which lowers the sensitivity of mammography. There are no dominant masses, suspicious micro calcifications or areas of architectural distortion. Authorizing ProviderResult TypeResult StatusLupilloe Tatiana Baig MDMAMMOFinal Result * (ABNORMAL) LIPID PANEL W REFLEX MEASURED LDL (06/10/2024 8:54 AM STRAP CUTTING MACHINE OPERATOR)Component ValueRef RangeTest MethodAnalysis TimePerformed AtPathologist Signature CHOLESTEROL, ZMUAI243(H)<200 mg/dLQuest [facility] Scrap Metal RecyclingeHDL LJVFNVLJZTR19 > OR = 50 mg/dLQuest [facility] [employer] WwkmQYEEAIUTVFSJW04<150 mg/dLQuest [facility] Scrap Metal RecyclingeLDL-HKQVKLIJZYR739(H)mg/dL (calc)Unirisx DaleComment: Reference range: <100 Desirable range <100 mg/dL for primary prevention; <70 mg/dL for patients with CHD or diabetic patients with > or = 2 CHD risk factors. LDL-C is now calculated using the Tomasz-Quincy calculation, which is a validated novel method providing better accuracy than the Friedewald equation in the estimation of LDL-C. Tomasz SS et al. NEVAEH. 2013;310(19): 1646-0393 (http://education.Asterion/faq/KDV822) CHOL/HDLC RATIO3.3<5.0 (calc)Planet MetricseNON HDL AMMQOCRUTYV982 (H)<130 mg/dL (calc)Planet MetricseComment: For patients with diabetes plus 1 major ASCVD risk factor, treating to a non-HDL-C goal of <100 mg/dL (LDL-C of <70 mg/dL) is considered a therapeutic option. Specimen (Source)Anatomical Location / LateralityCollection Method / Volume Collection TimeReceived TimeBloodBLOOD SPECIMEN / Sqlaomw1006/10/2024 8:54 AM STRAP CUTTING MACHINE OPERATOR 06/10/2024 8:55 AM STRAP CUTTING MACHINE OPERATOR Narrative Authorizing ProviderResult TypeResult StatusBhavna Baig MDCHEMISTRY Final ResultPerforming OrganizationAddressCity/State/ZIP CodePhone Number [facility] [address] [place] [address], [facility] [address] [place] [address] * SCAN-FECAL TEST DNA (COLOGUARD) (05/11/2021 12:00 AM STRAP CUTTING MACHINE OPERATOR) Narrative Authorizing ProviderResult TypeResult StatusScannerOTHERFinal Result * ANTI HCV (04/04/2021 5:15 PM STRAP CUTTING MACHINE OPERATOR)ComponentValueRef RangeTest MethodAnalysis TimePerformed AtPathologist SignatureHEPATITIS C ANTIBODYNon-Reactive Non-Uwdcpjuz90/27/2021 3:54 PM [facility] Comment:Antibodies to HCV not detected; does not exclude the possibility of exposure to HCV.Specimen (Source)Anatomical Location / LateralityCollection Method / VolumeCollection TimeReceived TimeBloodBLOOD SPECIMEN / Unknown Venipuncture / Yoaoemq5704/04/2021 5:15 PM CST04/04/2021 5:15 PM STRAP CUTTING MACHINE OPERATOR Narrative Authorizing ProviderResult TypeResult StatusBhavna Baig MDSEND OUTS Final ResultPerforming OrganizationAddressCity/State/ZIP CodePhone Number [facility] [address] [place] [address], * ELECTRONIC PUBLISHER THIN PREP PAP SCREEN IMAGED (04/04/2021 4:50 PM STRAP CUTTING MACHINE OPERATOR)ComponentValueRef RangeTest MethodAnalysis TimePerformed AtPathologist SignatureCase Report Gynecologic Cytology Report ? Case: [id number] ? Authorizing Provider: ??Bhavna Baig, ??Collected: ? 04/04/2021 1650 ? MD ? Ordering Location: ? [facility] ?? Received: ?04/04/2021 1723 ? Clinic ? First Screen: ?Monica Suárez ? Specimen: ?ELECTRONIC PUBLISHER ThinPrep Vial Screening, Cervical ? 04/22/2021 5:24 PM [facility] INTERPRETATION/RESULTNEGATIVE FOR INTRAEPITHELIAL LESION OR MALIGNANCY (NIL) (none)04/22/2021 5:24 PM [facility] at 1724 CSTSPECIMEN ADEQUACY Satisfactory for evaluation Endocervical cells cannot be evaluated due to severe bpxdosp6104/22/2021 5:24 PM [facility] LABORATORYHPV REQUESTHPV if ASCUS04/22/2021 5:24 PM [facility]Date of LMPunknown 04/22/2021 5:24 PM [facility]Last Pap Date 07/23/1800 5:24 PM [facility]ORYLast Pap EbcllnQFP78/10/2022 5:24 PM [facility] Abnormal Pap or [place] Bx in last 5 pikwnUr7404/22/2021 5:24 PM [facility] LABOR[facility]ORYMenstrual QqvmsuNwiuakvlwvdatq55/10/2022 5:24 PM [facility] LABOR[facility]ORYColp Bx Done TotmzYm6804/22/2021 5:24 PM [facility]ORYAdditional InformationNone given04/22/2021 5:24 PM [facility] LABORATORYComment: Cytology is screened at [facility] - [address], [place] [address] and [facility] - [address] [place] [address] and [facility] - [address] [place] [address] Interpreted at [facility] - [address], [place] [address] Automated IufpwlAmusgofhko54/10/2022 5:24 PM [facility] LABORATORYComment:Specimen processed successfully by automated wood patternmaker apprentice device, ThinPrep Imaging System, [employer]NoteThe pap test is a screening technique, not a diagnostic procedure. It is used primarily to screen for squamous cancers and precursor lesions. Published studies have shown that it is subject to both false negative and false positive results. The pap test should not be used as the sole means to diagnose or exclude pre-malignant and malignant lesions. 04/22/2021 5:24 PM [facility] LABORATORYSpecimen (Source)Anatomical Location / LateralityCollection Method / VolumeCollection TimeReceived TimeOther (Cervical)Non-Blood / Njgqvqp4904/04/2021 4:50 PM STRAP CUTTING MACHINE OPERATOR 04/04/2021 5:23 PM STRAP CUTTING MACHINE OPERATOR Narrative Authorizing ProviderResult TypeResult StatusJane Tatiana Baig MD PATHOLOGY/CYTOLOGYFinal ResultPerforming OrganizationAddressCity/State/ZIP Code Phone Number [facility] [address] [place] [address], from Last 3 Months or Most Recently Relevant to Health Maintenance Insurance Advance Directives TypeDate RecordedPatient RepresentativeExplanationHealthcare Directive09/26/2010 * Full Code (Latest Code Status on File) Date ActivatedDate InactivatedComments11/25/2011 8:27 AM11/25/2011 4:39 PM * Full Code Date ActivatedDate InactivatedComments09/26/2010 8:39 AM09/26/2010 7:52 PM Care Teams Team MemberRelationshipSpecialtyStart DateEnd Date Bhvana Baig MD [address] [place] [address] PCP - GeneralFamily Practice07/19/10
--- OUTSIDE RECORDS SUMMARY | 2025-03-21 21:03 | XMS_ITS | Data Portability ---
Author Organization [facility] Address [address] [facility] [address] [place] [address] Care Team Providers Care Welder/Fitter Name Role Phone ALFONSO WILSON Primary Care Provider [facility] Referring Provider [phone] Assessment Encounter Date Assessment Date Assessment LastModified by Organization Details LastModified Time 09/20/2024 09/20/2024 59 year old female with a history of microscopic hematuria here for cystoscopy. Not available 09/19/2024 18:53:29 Plan of Treatment Reminders Order DateSubmit DateProviderLast Modified ByJaguar DetailsLasev Modified TimeDetailsAppointmentsNone recorded.Laburinalysis, yjirpraq86 [facility], [address] [facility], [place], [place], [address], 24 13:51:17urinalysis, rjkoexfrfjc43/30/2025 09/09/2024[facility], [address], [place], [address], 53 13:23:24ReferralNone recorded. ProceduresNone recorded.SurgeriesNone recorded.ImagingCT, urogram - CT urogram for onjvzvjzh299846imhqma47[facility], [address] [place], [address], 07/04/2024 17:15:03Medication OrdersNone recorded. Patient TargetsNo targets recorded. Patient Instructions Encounter Date Encounter Id Patient Instructions Last Modified By Organization Details Last Modified Time 09/09/2024 [id number] Follow up for cystoscopy and then with me in 3 months kpipia Not available 09/08/2024 19:18:52 09/20/2024 [id number] Her cystoscopy was negative for tumor. She will complete here CT urogram which was previously ordered and will be contacted with the results. Not available 09/19/2024 18:53:47 12/01/2024 [id number] Follow up in 1 year, sooner if issues kpipia Not available 12/01/2024 09:21:00 Reason for Referral None Reported. Results Created Date Observation Date Name Description Value Unit Range Abnormal Flag Note LastModifiedBy Organization Detail LastModifiedTime 09/09/2024 09/09/2024 UA WITHOUT MICRO - CS URISCAN blood - uriscan NEGATIVE negativeNot AvailableMinnesota [facility] [address], [address], Ph [phone] 13:51:17 UA WITHOUT MICRO - CS URISCANbilirubin - uriscanNEGATIVE mg/dLnegativeNot AvailableMinnesota [facility] [address] [facility] [address], [place], [address], Ph [phone] 13:51:17 UA WITHOUT MICRO - CS URISCANurobilinogen - uriscanNORMAL mg/dLnormalNot AvailableMinnesota [facility] [address] [facility] [address], [place], [address], Ph [phone] 13:51:17 UA WITHOUT MICRO - CS URISCANketones - uriscanNEGATIVEmg/dL negativeNot AvailableMinnesota [facility] [address] [facility] [address], [place], [address], Ph [phone] 13:51:17 2025UA WITHOUT MICRO - CS URISCANprotein - uriscanNEGATIVEmg/dL negativeNot AvailableMinnesota [facility] [address] [place] [address], [place], [address], Ph [phone] 13:51:17 09/09/UA WITHOUT MICRO - CS URISCANnitrites - uriscanNEGATIVE negativeNot AvailableMinnesota [facility]rology [facility] [address] [place] [address] [address], [place], [address], Ph [phone] 13:51:17 09/09/UA WITHOUT MICRO - CS URISCANglucose - uriscanNEGATIVEmg/dL negativeNot AvailableMinnesota [facility] [address] [place] [address], [place], [address], Ph [phone] 13:51:17 09/09/UA WITHOUT MICRO - CS URISCANpH - uriscan5.005.00-9.00Not AvailableMinnesota [facility] [address] [place] [address], [place], [address], Ph [phone] 13:51:17 09/09/UA WITHOUT MICRO - CS URISCANsp. gravity - uriscan1.02 1.01-1.03Not AvailableMinnesota [facility] [address] [place] [address], [place], [address], Ph [phone] 13:51:17 09/09/UA WITHOUT MICRO - CS URISCANleukocytes - uriscanNEGATIVE negativeNot AvailableMinnesota [facility] [address] [place] [address], [place], [address], Ph [phone] 13:51:17 09/09/UA WITHOUT MICRO - CS URISCANcolor - uriscanYELLOWlt. yellow;yellowNot AvailableMinnesota [facility] [address] [place] [address] [address], [place], [address], 05 13:51:17 09/09/UA WITHOUT MICRO - CS URISCANclarity - uriscanCLEARclearNot AvailableMinallegheny [facility] hospital [facility] [address] [facility] [address], [place], [address], 22 13:51:17 09/09/UA WITHOUT MICRO - CS URISCANtotal urine volume (mL)40/mL *Please note the following minimum quantities for additional urine testing: - Atypicals: 3 mL - Cytology: 20 mL - GC/CH: 2 mL - FISH: 30 mL - Atypicals w/ GC/CH: 5 mL - Cytology PLUS FISH: 50 mL - Urine Culture: 3 mL -------- This lab result is being provided to you and your provider at the same time in compliance with the 21st Century Cures Act. Your provider may not have had time to review and make recommendations based on the result. Please allow up to one week for provider review.Not AvailableMinallegheny [facility] hospital [facility] [address] [facility] [address], [place], [address], 32 13:51:17 /5CT, abdomen + pelvis, w/wo contrastNo observation recorded. kpipiaNot Lpgcazour94/30/2025 16:39:39 Result Notes None recorded. Procedures Surgical History Date Name Laterality Status Provider Name and Address Organization Details Recorded Time 12/01/2024 Past Data Reviewed completedKATHRYN PIPIA, PA [address] [facility],[address], [place], [address], [facility] Qocomxr0811/30/2024 11:13:29[address]/20/2024ystoscopy- femalecompleted Shashank Gerber MD [address] [facility],[address], [place], [address], [facility] Nhhjcoh0709/19/2024 18:53:17009/09/2024Pelvic ExamcompletedLANA TELLEZ [address] [facility],[address], [place], [address], [facility] Zqprgux2409/08/2024 19:10:Past Data Reviewedcompleted LANA TELLEZ [address] [facility],[address], [place], [address], [facility] Qslwftv2009/08/2024 19:16:In and Out Catheterization- femalecompletedLANA TELLEZ [address] [facility],[address], [place], [address], [facility] Vukertd4109/09/2024 12:32:42007/10/2022Oncology colorectal scr completedNot AvailableHealth Note11/27/2024 15:56:40 Imaging Results None recorded. Procedure Notes None recorded. Medical Equipment None Reported. Allergies Allergen ID Allergen Name Allergen Category Reaction Reaction Severity Criticality Documentation Date Start Date Code Code System Note Provider Name and Address Organization Details Recorded Time 347382 doxycycline Not available Not available Not available Not opwcglczy63/[id number] reaction (text: Nausea And Vomiting, code: 77257123) (from external source)Liliana hermosillo [facility]09/09/2024 11:56:79106248hdjuayazsfwiioseeazglfshzpoobh Not available Not epwmwxnnb85/[id number] Rizo null, [facility] Ndiuunu2509/09/2024 11:56:03 Medications Name Sig Start Date Stop Date Status Note LastModified by Organization Details LastModified Time doxycycline hyclate 100 mg capsule TAKE 1 CAPSULE BY MOUTH TWO TIMES DAILY FOR 10 DAYS. 09/09/2024ompletedNot AvailableNot AvailableNot Availableamoxicillin 500 mg tabletTAKE 1 TABLET BY MOUTH TWO TIMES DAILY FOR 10 DAYS.09/09/2024ompletedNot AvailableNot AvailableNot Availablecephalexin 500 mg capsuleTAKE 1 CAPSULE BY MOUTH TWO TIMES DAILY FOR 7 DAYS.09/09/2024ompletedNot AvailableNot Available Not Availablediltiazem ER 60 mg capsule,extended release 12 hrTAKE 1 CAPSULE BY MOUTH TWICE A DAYactiveNot AvailableNot AvailableNot Availableestradiol 0.01% (0.1 mg/gram) vaginal creamINSERT 1 G INTO THE VAGINA EVERY THURSDAY AND THURSDAY. activeNot AvailableNot AvailableNot Available Vitals Date Recorded Body height Body mass index (BMI) Body weight Provider Name and Address Organization Details Last Updated DateTime 09/09/2024 162.56 cm 20.1 kg/m2 06284.31 g Liliana Dasilva [facility] 09/09/2024 12:01:02 Date Recorded Body height Body mass index (BMI) Body weight Provider Name and Address Organization Details Last Updated DateTime 09/20/2024 162.56 cm 20.1 kg/m2 28520.31 g Ovidio Lightfeather [facility] 09/20/2024 08:45:10 Date Recorded Body weight Provider Name an d Address Organization Details Last Updated DateTime 12/01/2024 83235.31 g Liliana Dasilva [facility] 0 12/01/2024 09:11:28 Date Recorded Body height Body mass index (BMI) Provider Name and Address Organization Details Last Updated DateTime 12/01/2024 162.56 cm 20.1 kg/m2 Not Available Health Note 09:09:15 Social History Question Answer Notes LastModified by Organization D etails LastModified Time Tobacco Smoking Status Never Smoker Not AvailableHealth Note11/27/2024 15:56:40Do You Have An Advance Directive?Yes API-685Information not lhqzdlzuv10/17/2025What Is Your Level Of Caffeine Consumption?Occasional1/2 Cup Daily. 3-4 Diet Sodas Per Week.API-685Information not rsmzsqsol86/17/2025How Much Tobacco Do You Chew?NoneAPI-685Information not lzipfdwsl24/17/2025EthnicityNot /Qhwgqjcgurz1Adedbpslxjh not available 09/09/2024Preferred IjkgfzziOrkqlhurseak9Wnmonkavdku not iyocjtkrx30/30/2025 Number Of Kobfldfkvnz8lwntu0Aqhpnkoxdbk not wkjzyavkh28/30/2025Number Of Vaginal Qmeqrneofd1wetvc6Zyvgnrmwqob not /30/2025Number Of Caesarean Sections 9hozcv8Kuqqjxoqczc not pqvzgptuf05/30/2025Recreational Drug UseNoirizo3 Information not /30/2025ould You Be ?Fangcun0Dzrpwnqhvrq not rljrdrgej28/30/2025Do You Have A Medical Power Of Granulator?YesAPI-685Information not ezwzjurtt76/17/2025What Was The Date Of Your Most Recent Tobacco Screening? 12/01/2024PI-685Information not ewvazjkew37/17/2025Have You Ever Been Counseled For Unhealthy Alcohol Use?Puqhgkq6Auuovikruvu not /30/2025What Is Your Relationship Status?MarriedAPI-685Information not dxulqojer56/17/2025re You Sexually Active?YesAPI-685Information not uibgasasx38/17/2025Has Tobacco Cessation Counseling Been Provided?Ruxmhtf3Xzrwvjhctot not mcjnyngfb85/30/2025 How Many Days In The Past Year Have You Consumed 4 Or More Drinks?0API-685 Information not pvxqohade52/17/2025 Sex: Unknown Functional Status Question Answer Note LastModified by Organization D etails LastModified Time Do you use any illicit or recreational drugs? No API-685Information not undejgqeo66/17/2025Do you or have you ever used any other forms of tobacco or nicotine?Mbioqwg9Knmyfzfqnik not xntzgutsp03/30/2025What is your level of alcohol consumption?Pustwsheh6Inbfdruayku not gmtjataze37/21/2025 Do you or have you ever used smokeless tobacco?Never used smokeless tobacco API-685Information not tfdqujfeq80/17/2025re you currently employed?Noretired. msoyz9Syvfbwyxsag not wjzgrkcqi30/30/2025Do you or have you ever used e- cigarettes or vape?Never used electronic cigarettesAPI-685Information not pwcfewuwt44/17/2025 Mental Status None recorded. Family History Relationship Description Onset Age of this Age Resolved Age Notes LastModified by Organization Details LastModified Time Paternal Grandfather Family history of cancer of colon eocab6Rcy zzipgiemb62/30/2025 12:02:34BrotherFamily history of diabetes mellitus wjmol8Ili iikuuccsz39/30/2025 12:03:28BrotherFamily history of diabetes mellitus ofusd3Jrs yfsoxnbsa61/30/2025 12:03:29BrotherFamily history of renal stoneirizo3 Not vjgteqqbj43/30/2025 12:04:00FatherFamily history of Iuolbuvlfmlcbvqor4Uxq lapaarqdx76/30/2025 12:03:48Unspecified RelationFamily history of Hypertension jsiwylgvd2Bpn yyesmfxff72/30/2025 12:03:49 Notes:dad/ prostate cancer. Medical History Condition Response Sexually Transmitted Infection N Diabetes N Bleeding Disorder N High Blood Pressure Y Kidney Stones N Cancer N Lung Disease N Depression N High Cholesterol N GERD/Acid Reflux N Heart Disease Y Gynecological HistoryNo gynecological history recorded. Obstetrics History GPAL:G 0 P 0 0 0 0 Immunizations Vaccine Type Date Status Note Provider Nam e and Address Organization Details Recorded Time Td (adult), 2 Lf tetanus toxoid, preservative fr ee, adsorbed 01/15/2004 completed Not QhxyhbmefZjnyoaWvyfjx85/21/2025 09:09:68Welu3612/05/2014completedNot Available DkwzsgAyklps85/21/2025 09:09:54Influenza, split virus, quadrivalent, PF 02/06/2016completedNot JmjvvhjxyKnzmjkYzmygn13/21/2025 09:09:54Influenza, split virus, quadrivalent, PF12/06/2019completedNot VygmwtgucTnvfwrTbjnci99/21/2025 09:09:54COVID-19, mRNA, LNP-S, PF, 100 mcg/0.5mL dose or 50 mcg/0.25mL dose 05/23/2020ompletedNot LhdebssmtDifmigSpnebc86/21/2025 09:09:54COVID-19, mRNA, LNP-S, PF, 100 mcg/0.5mL dose or 50 mcg/0.25mL dose1completedNot ChrjkibjtLpfhcoDmrgqb56/21/2025 09:09:54Influenza, split virus, quadrivalent, PF 01/14/2021ompletedNot TsvyeiugiSndrurLxxlda38/21/2025 09:09:54COVID-19, mRNA, LNP-S, PF, 100 mcg/0.5mL dose or 50 mcg/0.25mL dose02/09/2021ompletedNot OrltbviktFbmqqnFnpcdd41/21/2025 09:09:54COVID-19, mRNA, LNP-S, PF, 100 mcg/0.5mL dose or 50 mcg/0.25mL dose2completedNot RjsueuepqLxuxuiAuwurw00/21/2025 09:09:54COVID-19, mRNA, LNP-S, bivalent, PF, 30 mcg/0.3 mL dose01/07/2022 completedNot UexljgllfIcovafYyfrqm26/21/2025 09:09:54COVID-19, mRNA, LNP-S, PF, 50 mcg/0.5 mL01/17/2023ompletedNot FawtzmvpkJewiyhJcemau59/21/2025 09:09:54 COVID-19, mRNA, LNP-S, PF, danie-sucrose, 30 mcg/0.3 mL01/04/2024ompletedNot PdlcmvhwdXeyycsEtnqsn12/21/2025 09:09:54COVID-19, mRNA, LNP-S, PF, 50 mcg/0.5 mL 06/10/2024ompletedNot UiuvobggdDrowzePhowts33/21/2025 09:09:62TIA2206/30/2024 completedNot EubodgkziEimlbhYqpbxz58/21/2025 09:09:40ALYV-NRT-9 (COVID-19) vaccine, CXWRWXKJPPA52/28/2025completedNot [facility] Note11/27/2024 15:56:43 Past Encounters Encounter ID Performer Location Encounter Start Date Encounter Closed Date Diagnosis/Indication Diagnosis SNOMED-CT Code Diagnosis ICD10 Code Diagnosis IMO Codes Diagnosis Note [id number] LANA TELLEZ [address] [address] 09/09/2024 11:49:20 09/12/2024 10:41:44 Recurrent urinary tract infection 062236743 N39.0 139278 new-1 culture proven infection-Discussed causes and risk factors for recurrent UTIs and gave handout.-Discussed that 1-2 UTIs a year for females is not abnormal-Test and treat for UTIs based off urine culture results, when able.- continue vaginal estrogen cream, increase to use 2-3 nights per week-Recommend conservative management including timed voiding every 3 hours, adequate hydration with 48-64 ounces of water daily, avoidance of constipation, cranberry tablets, and probiotics. Consider D-Mannose.Microscopic uyeenojmx006815660W52.29 996847 new-07/26/24: UC multiple organisms, >100 RBCs. Also has GH with UTI like episodes, but only 1 positive UC on record-We discussed possible sources of microscopic hematuria including urologic malignancy, infection/inflammation, calculus disease, trauma, abnormal anatomy, or exercise induced hematuria.-CT urogram ordered-Will have her schedule for cystoscopy-If the full work-up is negative, recommend follow-up with the patient's PCP annually with a urinalysis. -Repeat hematuria work-up in 3 to 5 years if there is still microscopic hematuria seen.-Urine cytology should be considered in certain patients with history of gross hematuria with risk factors for malignancy.-Patient was instructed to call if they see any obvious blood in the urine.[id number] Buzz [address] [address] 09/20/2024 08:34:48009/22/2024 16:36:47Microscopic bcsprchtd345105703L92.29 [id number] PIPIA [address] [address] 12/01/2024 09:08:41012/02/2024 12:16:31Recurrent urinary tract dfolgwpel949680236 N39.0 334485 est stable-1 culture proven infection-Discussed causes and risk factors for recurrent UTIs and gave handout.-Discussed that 1-2 UTIs a year for females is not abnormal-Test and treat for UTIs based off urine culture results, when able. -continue vaginal estrogen cream, increase to use 2-3 nights per week-Recommend conservative management including timed voiding every 3 hours, adequate hydration with 48-64 ounces of water daily, avoidance of constipation, cranberry tablets, and probiotics. Consider D-Mannose.Microscopic eucfvpbnp574641739V28.29 941763 est stable-07/26/24: UC multiple organisms, >100 RBCs. Also has GH with UTI like episodes, but only 1 positive UC on record-CT urogram 09/21/24: no suspicious masses, stones, or hydronephrosis-Cystoscopy with Dr. Gerber normal 09/20/24- Recommend follow-up with the patient's PCP annually with a urinalysis.-Repeat hematuria work-up in 3 to 5 years if there is still microscopic hematuria seen.- Patient was instructed to call if they see any obvious blood in the urine. Health Concerns Section Related Observation LastModified by Organization Toña ls LastModified Time None Recorded Concern Status LastModified by Organization Details LastModified Time None Recorded Advance Directives Directive Y: Payers Insurance Date Sequence Insurance Name Policy Number Policy Bruce Covered Member ID Bruce Member ID Guarantor Name 11/28/2024 1 [place] [id number] Meron bolaños [id number] Meron Robins Notes Date Note Type Note Provider Name and Address Orga nization Details Recorded Time 09/09/2024 text/html [birth year]58yo F referred for evaluation of recurrent UTI 1 culture proven infection. Symptoms started in April after returning from [place], multiple infections between April and July. Symptoms with UTI include bladder pain and urgency, terminal dysuria, frequent small voids and gross hematuria. This improves with antibiotics. No history of kidney stones. Previous abdominal surgeries include none. Sexually active, infections do not seem related tointercourse. Average amount of fluids per day is several glasses. Has BM daily. Patient has tried vaginal estrogen once per week, vitamin c for prevention. She took doxycycline for tick bite recentlyand has felt great ever since then from urinary perspective. Asymptomatic of infection today. Sees GH on toilet paper during infections. No recent trauma to the back or flanks. Not on anticoagulation. No history of pelvic radiation. No vaginal bleeding, weight loss. No smoking history. Great aunt with bladder cancer. No other family history of kidney, bladder, prostate, or testicular cancers.ASHISHLANA BATES [address] [place] [address],[address], [place], [address], [facility] Tkbxasd7809/09/2024 13:26:4906text/html This is a 59 year old female with a history of microscopic hematuria here for cystoscopy.Shashank Gerber MD [address] [facility],[address], [place], [address], [facility] Pcykctl8309/20/2024 08:54:10012/01/2024text/html 12/01/24Follow up for Jermain and microscopic hematuria Patient completed hematuria workup with normal findings on CT urogram and cystoscopy in September 2024. No further episodes of gross hematuria. No irritative voiding symptoms. No infections since last visit. Has been drinking more water. Taking cranberry tablets daily. 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 Daily and regular BMs. Voiding every 4 hours, 0 at night, no incontinence or pads. Symptoms since last appointment:100% BetterHappy with current treatment plan:yes Urogenital Distress Inventory (ZARIA-6): 1, Incontinence Impact Questionnaire (IIQ-7): 0 [birth year]58yo F referred for evaluation of recurrent UTI 1 culture proven infection. Symptoms started in April after returning from [place], multiple infections between April and July. Symptoms with UTI include bladder pain and urgency, terminal dysuria, frequent small voids and gross hematuria. This improves with antibiotics. No history of kidney stones. Previous abdominal surgeries include none. Sexually active, infections do not seem related tointercourse. Average amount of fluids per day is several glasses. Has BM daily. Patient has tried vaginal estrogen once per week, vitamin c for prevention. She took doxycycline for tick bite recentlyand has felt great ever since then from urinary perspective. Asymptomatic of infection today. Sees GH on toilet paper during infections. No recent trauma to the back or flanks. Not on anticoagulation. No history of pelvic radiation. No vaginal bleeding, weight loss. No smoking history. Great aunt with bladder cancer. No other family history of kidney, bladder, prostate, or testicular cancers.LANA TELLEZ [address] [facility],[address], [place], [address], [facility] Lxzvrdd7112/01/2024 09:21:27 OBGyn Episode No OBEpisode recorded.
--- OUTSIDE RECORDS SUMMARY | 2025-03-21 21:03 | XMS_ITS | Encounter Summary ---
Author Organization [facility] Address [address] [place] [address] Care Team Providers Care Associate Professor Of Violin Name Role Phone No Ref-Primary, Physician Primary Care Provider Reason for Visit * ReasonOnset DateComments*-*INCOMING RECORDS*-*03/15/2025 Encounter Details DateTypeDepartmentCare Team (Latest Contact Info)Ocoftkyezzl04/03/2025PRE VISIT [facility] [address] [place] [address] [place] [address] [place] , [address] [address] *-*INCOMING RECORDS*-* Social History Tobacco UseTypesPacks/DayYears UsedDateSmoking Tobacco: NeverComments UnknownSex and Gender InformationValueDate RecordedSex Assigned at BirthNot on fileLegal MtlTcgprh47/04/2012 3:44 AM CSTGender IdentityNot on fileSexual OrientationNot on filedocumented as of this encounter Miscellaneous Notes * Telephone Encounter - Roshni Fields - 03/13/2025 10:09 AM CST Records Requested March 13, 2025 10:16 AM [id number] Facility [facility] Outcome 10:17 am Sent request for imaging to be pushed. -JA Action March 15, 2025 9:04 AM MT Action Taken Called [facility] for imaging to be pushed STAT. 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 [address] [facility] 4th [place] [address] [place] [address] [place], [place] [address] documented as of this encounter Visit Diagnoses Not on filedocumented in this encounter Care Teams Team MemberRelationshipSpecialtyStart DateEnd Date No Ref-Primary, Physician PCP - Gpuqahp31/3/25documented as of this encounter
--- NOTE | 2025-03-21 21:04 | ED.DIZZY ---
HPI - Dizziness General Time Seen by Provider: 21:04 Date Seen: 03/21/25 Chief Complaint: Dizziness/Vertigo Stated Complaint: Confusion Time Seen by Provider: 03/21/25 21:04 Source: patient Mode of arrival: ambulatory Limitations: no limitations History of Present Illness HPI Narrative: 59-year-old female who comes in today with an episode of confusion. This patient notes about 7:00 p.m. she was trying to do something on her phone and had difficulty doing, tried several times was unable to do so. She did not have any difficulty with coordination or using the phone. She says her head felt ?mushy? during this episode. No numbness or tingling in the arms or legs, no weakness in the arms or legs. [place] like she heard fire alarms going off during this time says her the alarms in her house to occasionally go off, notes some tingling around her mouth during this time as well. Patient still feels little lightheaded but otherwise back to normal now. No chest pain or palpitations associated with this. Related Data Home Medications ?Medication ?Instructions ?Recorded ?Confirmed diltiazem HCl 60 mg ea PO 01/17/22 06/09/23 capsule,extended release 12 hr Allergies Allergy/AdvReac Type Severity Reaction Status Date / Time lisinopril Allergy Severe Swelling Verified 06/09/23 16:20 of Lip/Tongue/Throat PFSH PFSH Social History Smoking Status: Never smoker Do you use any of these nicotine containing products: None Second hand tobacco smoke exposure: No How often do you have a drink containing alcohol: never AUDIT-C Alcohol total score: 0 Non-prescribed substance use: denies use Exam Narrative: Exam Narrative: General: Well-developed and well-nourished, no acute distress Head: Atraumatic and normocephalic Eyes: Pupils are equal reactive, extraocular motions intact, conjunctiva clear ENT: External nose and ears are normal, posterior pharynx without erythema or exudate Neck: No midline cervical tenderness, full spontaneous range of motion the neck, trachea midline, no adenopathy Heart: Regular rate and rhythm no murmurs or thrills Lungs: Clear to auscultation bilaterally without wheezes or crackles Abdomen: Soft, nontender, nondistended with active bowel sounds Musculoskeletal: No tenderness, deformity, or edema Neurologic: Awake, alert, and oriented x3, no gross focal neurologic deficits, cranial nerves intact as tested Psych: Mood and affect are appropriate Skin: No rashes Const: Vital Signs, click to edit/add: Vital Signs - 24 hr 03/21/25 21:12 Temperature 97.8 F Pulse Rate [Pulse Oximeter] 63 Respiratory Rate 18 Blood Pressure [Ri ght Upper Arm] 168/83 H Pulse Oximetry 98 Oxygen Delivery Me thod Room Air Course Course ED Course: Additional records reviewed: His primary care visit from January 2025 which was for chronic right shoulder pain, MRI was ordered. Ed Additional history from: Care impacted by: History of SVT Testing considered but not performed: See ED course Disposition: EKG independently interpreted by me performed at 9:14 p.m. demonstrates sinus rhythm with PAC, right ventricular conduction delay, nonspecific ST changes, no acute ischemic changes, QTC 429, NH 136. Compared to prior May 2023 right ventricular conduction delay is new, nonspecific ST changes are new. Patient seen and examined, presents today with this spell about 30 minutes of confusion and funny feeling in her head, now resolved. No weakness during this episode. On exam here, finally stable, speech is fluent, no facial asymmetry, no drift of the upper or lower extremities, and stroke scale 0. Symptoms could be related to TIA, patient with a fall earlier but no head injury. Labs are ordered along with CT head neck. Reevaluation(s) Time of Reevaluation #1: 23:03 Reevaluation #1: Labs Advil interpreted by me with normal CBC, normal basic panel, normal urinalysis. CTA of the head neck negative for acute findings. Patient rechecked and is back to normal. Symptoms could be from a TIA although somewhat nonfocal, as patient is back to baseline with no large vessel finding neck, and no evidence for atrial fibrillation, stable for discharge. She should start a daily baby aspirin and follow up with primary care. Vital Signs Vital signs: Initial Vital Signs Temperature 97.8 F 03/21/25 21:12 Temperature Source Temporal Artery Scan 03/21/25 21:12 Pulse Rate 63 03/21/25 21:12 Pulse Rhythm Regular 03/21/25 21:12 Respiratory Rate 18 03/21/25 21:12 Blood Pressure 168/83 H 03/21/25 21:12 Blood Pressure Mean 111 H 03/21/25 21:12 Blood Pressure Position Supine 03/21/25 21:12 Pulse Oximetry 98 03/21/25 21:12 Oxygen Delivery Method Room Air 03/21/25 21:12 Vital Signs Temperature 97.8 F 03/21/25 21:12 Pulse Rate 63 03/21/25 21:12 Respiratory Rate 18 03/21/25 21:12 Blood Pressure 168/83 H 03/21/25 21:12 Pulse Oximetry 98 03/21/25 21:12 Oxygen Delivery Method Room Air 03/21/25 21:12 Temperature 97.8 F 03/21/25 21:12 Pulse Rate 63 03/21/25 21:12 Respiratory Rate 18 03/21/25 21:12 Blood Pressure 168/83 H 03/21/25 21:12 Pulse Oximetry 98 03/21/25 21:12 Oxygen Delivery Method Room Air 03/21/25 21:12 MDM - Dizziness Lab Data Labs: Lab Results 03/21/25 03/21/25 Range/Units 21:36 22:04 WBC 5.69 (4.50-11.00) K/uL RBC 4.31 (4.00-5.20) m/uL Hgb 13.2 (12.0-16.0) gm/dL Hct 38.5 (33.0-51.0) % MCV 89 (80-100) fL MCH 31 (26-34) pg MCHC 34 (32-36) gm/dL RDW Coeff of Sarah 11.8 (11.5-15.5) % Plt Count 217 (140-440) K/uL Neut % (Auto) 44.3 (42.0-72.0) % Lymph % (Auto) 45.2 H (20-44) % Hubbard % (Auto) 8.1 (0.0-11.0) % Eos % (Auto) 1.9 (0.0-7.0) % Baso % (Auto) 0.5 (0.0-3.0) % Neut # (Auto) 2.52 (1.7-7.0) K/uL Lymph # (Auto) 2.60 (0.90-2.90) K/uL Hubbard # (Auto) 0.50 (0.00-0.90) K/UL Eos # (Auto) 0.11 (0.00-0.50) K/uL Baso # (Auto) 0.03 (0.00-0.30) K/uL Abs Immat Gran (auto) 0.00 (0.00-0.30) K/uL Imm/Tot Granulo (auto) 0.0 % Sodium 139 (135-149) mmol/L Potassium 3.3 L (3.6-5.1) mmol/L Chloride 101 (96-114) mmol/L Carbon Dioxide 27 (20-32) mmol/L Anion Gap 11 (7-15) mEq/L BUN 12 (7-30) mg/dL Creatinine 0.6 (0.5-1.5) mg/dL Estimated Creat Clear 48.65 Estimated GFR 102 ml/min Glucose 112 (60-115) mg/dL Calcium 10.0 (8.4-10.6) mg/dL Magnesium 2.0 (1.5-2.6) mg/dL Urine Color Yellow (Yellow) Urine Appearance Clear (Clear) Urine pH 7.0 (5.0-8.5) Ur Specific [place] 1.015 (1.000-1.030) Urine Protein Negative (Negative) Urine Glucose (UA) Negative (Negative) Urine Ketones Negative (Negative) Urine Blood Negative (Negative) Urine Nitrite Negative (Negative) Urine Bilirubin Negative (Negative) Urine Urobilinogen 1.0 (0.2-1.0) Ur Leukocyte Esterase 1+ A (Negative) Urine RBC 0-2 (0-2) Urine WBC 0-2 (0-5) Ur Squamous Epith Cells Few (None-Few) Urine Bacteria None (None) Ethyl Alcohol < 0.01 (0.01-0.03) % Discharge Plan Discharge Clinical Impression: Transient alteration of awareness Patient Disposition: Home, Self-Care Condition: Stable Instructions: Transient Ischemic Attack (ED) Additional Instructions: Start taking a baby aspirin daily Follow-up with your primary care provider soon as possible for further evaluation and treatment Activity Level: Activity as Tolerated Discharge Diet: Regular Prescriptions: No Action diltiazem HCl 60 mg capsule,extended release 12 hr PO Patient Comments: TAKE 1 CAPSULE BY MOUTH EVERY MORNING Follow Up/Referrals: Bhavna Baig MD [Primary Care Provider, Family Practice] Stand Alone Forms: [employer] Info Instructions
[2025-03-21 21:12] VITALS: BP 168/83; PULSE 63; RESP 18; TEMP 36.6; O2SAT 98; BMI 19.7
--- NOTE | 2025-03-21 21:30 | CT_ITS ---
Patient: DUSTIN PARIS Facility:?[facility] Patient ID:?[id number] Site Patient ID:?[id number]. Site :?[id number] Study:?CT-Head Angio CTA HEAD AND NECK WITH ISOVUE 370-03/21/2025 10:31:54 PM Ordering Physician:Luis Garcia Final Report: DATE: 03/22/2025 CLINICAL HISTORY: Patient with altered mental status. TECHNIQUE: Standard helical CT image acquisition through the head and neck was performed after intravenous contrast bolus enhancement. 2D and 3D MIP images for post- processing were performed and interpreted on an independent workstation and 3D images were permanently archived. COMPARISON: CT same day. FINDINGS: The origins of the great vessels from the aortic arch are patent. The origin of the right vertebral artery is patent. The origin of the left vertebral artery is patent. The common carotid arteries are patent There is no stenosis at the origin of the right internal carotid artery. There is no stenosis at the origin of the left internal carotid artery. The rest of the cervical segments of the internal carotid arteries are patent up to their intracranial segments. The intracranial segments of the internal carotid arteries are patent. The left vertebral artery is dominant. The cervical segments of the vertebral arteries are patent. The intracranial segments of the vertebral arteries are patent. The middle cerebral arteries are normal without aneurysm or proximal occlusion identified. The anterior cerebral arteries are normal without aneurysm or proximal occlusion identified. The anterior communicating artery is well visualized and appears normal. The basilar artery is normal without aneurysm or occlusion. The posterior cerebral arteries are normal without aneurysm or proximal occlusion. There is normal opacification of major intracranial venous structures. The visualized lung apices are unremarkable The thyroid gland is unremarkable. The soft tissues of the neck are unremarkable. There are degenerative changes in the cervical spine. IMPRESSION: Normal CT angiogram of the head and neck. Please note that all CT scans at this facility use dose modulation, iterative reconstruction, and/or weight-based dosing when appropriate to reduce radiation dose to as low as reasonably achievable. Dictated by Jeannette Willett MD @ 03/22/2025 9:22:30 AM Signed by:?Jeannette Willett MD @03/22/2025 9:22:30 AM (Electronic Signature)
--- NOTE | 2025-03-21 21:31 | CRLHL7_ITS ---
For Patients: As a result of the Cures Act, medical imaging exams and procedure reports are released immediately into your electronic medical record. You may view this report before your referring provider. If you have questions, please contact your health care provider. INDICATION: Altered mental status. COMPARISON: None. TECHNIQUE: CT of the head without IV contrast. Coronal and sagittal reconstructions. FINDINGS: Brain: No intracranial hemorrhage, abnormal extra-axial fluid collection, or evidence of acute infarct. No mass effect or midline shift. Normal caliber ventricular system. Skull base and calvarium: The visualized paranasal sinuses and mastoid air cells are clear. The visualized orbits are grossly unremarkable. No acute fracture identified. Soft tissues: Unremarkable. IMPRESSION: No acute intracranial findings. Please note that all CT scans at this facility use dose modulation, iterative reconstruction, and/or weight-based dosing when appropriate to reduce radiation dose to as low as reasonably achievable. Dictated by Arabella George MD @ 03/21/2025 10:42:21 PM (Electronically Signed)
[2025-03-21 21:36] LABS: Hematocrit* 38.5 % (33.0-51.0); Hemoglobin* 13.2 gm/dL (12.0-16.0); Immature Granulocytes Abs Auto 0.00 K/uL (0.00-0.30); Immature Granulocytes Pct Auto 0.0 %; Mean Corpuscular HGB Conc 34 gm/dL (32-36); Mean Corpuscular Hemoglobin 31 pg (26-34); Mean Corpuscular Volume 89 fL (80-100); RDW Coefficient of Variation % 11.8 % (11.5-15.5); Red Blood Count* 4.31 m/uL (4.00-5.20); White Blood Count* 5.69 K/uL (4.50-11.00)
--- NOTE | 2025-03-21 21:47 | CT_ITS ---
Patient: DUSTIN PARIS Facility:?[facility] Patient ID:?[id number] Site Patient ID:?[id number]. Site :?[id number] Study:?CT-Neck Angio Angio CTA HEAD AND NECK WITH ISOVUE 37-03/21/2025 10:29:45 PM Ordering Physician:Luis Garcia Final Report: DATE: 03/22/2025 CLINICAL HISTORY: Patient with altered mental status. TECHNIQUE: Standard helical CT image acquisition through the head and neck was performed after intravenous contrast bolus enhancement. 2D and 3D MIP images for post- processing were performed and interpreted on an independent workstation and 3D images were permanently archived. COMPARISON: CT same day. FINDINGS: The origins of the great vessels from the aortic arch are patent. The origin of the right vertebral artery is patent. The origin of the left vertebral artery is patent. The common carotid arteries are patent There is no stenosis at the origin of the right internal carotid artery. There is no stenosis at the origin of the left internal carotid artery. The rest of the cervical segments of the internal carotid arteries are patent up to their intracranial segments. The intracranial segments of the internal carotid arteries are patent. The left vertebral artery is dominant. The cervical segments of the vertebral arteries are patent. The intracranial segments of the vertebral arteries are patent. The middle cerebral arteries are normal without aneurysm or proximal occlusion identified. The anterior cerebral arteries are normal without aneurysm or proximal occlusion identified. The anterior communicating artery is well visualized and appears normal. The basilar artery is normal without aneurysm or occlusion. The posterior cerebral arteries are normal without aneurysm or proximal occlusion. There is normal opacification of major intracranial venous structures. The visualized lung apices are unremarkable The thyroid gland is unremarkable. The soft tissues of the neck are unremarkable. There are degenerative changes in the cervical spine. IMPRESSION: Normal CT angiogram of the head and neck. Please note that all CT scans at this facility use dose modulation, iterative reconstruction, and/or weight-based dosing when appropriate to reduce radiation dose to as low as reasonably achievable. Dictated by Jeannette Willett MD @ 03/22/2025 9:23:04 AM Signed by:?Jeannette Willett MD @03/22/2025 9:23:04 AM (Electronic Signature)
[2025-03-21 21:48] LABS: Chloride* 101 mmol/L (96-114)
[2025-03-21 21:49] LABS: Potassium* 3.3 mmol/L (3.6-5.1); Sodium* 139 mmol/L (135-149)
[2025-03-21 21:51] LABS: Blood Urea Nitrogen* 12 mg/dL (7-30); Creatinine* 0.6 mg/dL (0.5-1.5); Est. Creatinine Clearance* 48.65; Estimated Glomerular Filt Rate 102 ml/min
[2025-03-21 21:52] LABS: Anion Gap 11 mEq/L (7-15); Calcium* 10.0 mg/dL (8.4-10.6); Carbon Dioxide* 27 mmol/L (20-32); Glucose* 112 mg/dL (60-115)
[2025-03-21 21:54] LABS: Ethanol* < 0.01 % (0.01-0.03)
[2025-03-21 21:56] LABS: Lymphocytes Absolute Auto 2.60 K/uL (0.90-2.90)
[2025-03-21 21:57] LABS: Slide Review Reflex No
[2025-03-21 22:13] LABS: Appearance Urine Clear (Clear)
[2025-03-21 23:05] VITALS: BP 149/75; PULSE 60; RESP 16; TEMP 36.7; O2SAT 98
[2025-03-21 23:16] VITALS: BP 138/74; PULSE 74
== END 2025-03-21 23:17 | disposition home or self-care (01) ==
PROVIDERS: Emergency Provider Family Medicine; PCP Family Medicine
DX: R40.4 Transient alteration of awareness (principal)
CPT/HCPCS: 36415; 70450; 70496; 70498; 80048; 81001; 82077; 83735; 85025; 87086; 87186; 99284; Q9967